=== PATIENT | female | born 1995 | race Caucasian/White ===

== ENCOUNTER 2019-02-09 17:08 | Emergency (ER) | payer OTHER ==
--- NOTE | 2019-02-09 18:44 | ED ---
Skin/Abscess/FB HPI - General Chief complaint: Skin/Abscess/Foreign Body Stated complaint: cyst, female gu, 22 weeks preg Time Seen by Provider: 02/09/19 17:33 Source: patient, RN notes reviewed, old records reviewed Mode of arrival: ambulatory Limitations: no limitations - History of Present Illness Initial comments: Patient is a 24-year-old female . She presents emergency Department with lower back cramping and pain. She states that she's had some UTI like symptoms with frequent urination. Patient reports she has a known history of a Michelle jr's cyst. Its been there for a few months. She denies any new redness or swelling to this area. states that she was initially concerned for her with a lower back cramping starting last night. Patient was 30 seen on labor and delivery floor and sent here. Patient states she's had no testing at the labor and delivery for this time. - Related Data Home Medications Medication Instructions Recorded Confirmed Pnv,Calcium 72/Iron/Folic Acid 1 tab PO DAILY 05/27/15 05/30/15 [ Plus Tablet] Previous Rx's Medication Instructions Recorded Acetaminophen-Codeine 300-30mg 1 - 2 each PO Q4HR PRN #30 tab 06/02/15 [Tylenol w/codeine #3] Ibuprofen [Motrin] 600 mg PO Q6HR PRN #40 tab 06/02/15 Cephalexin [Keflex] 500 mg PO Q8HR #21 cap 02/09/19 Allergies Allergy/AdvReac Type Severity Reaction Status Date / Time No Known Allergies Allergy Verified 02/09/19 17:22 Review of Systems ROS Statement: Those systems with pertinent positive or pertinent negative responses have been documented in the HPI. ROS Other: All systems not noted in ROS Statement are negative. Past Medical History Past Medical History: No Reported History History of Any Multi-Drug Resistant Organisms: None Reported Past Surgical History: No Surgical Hx Reported Past Anesthesia/Blood Transfusion Reactions: No Reported Reaction Past Psychological History: No Psychological Hx Reported Smoking Status: Never smoker Past Alcohol Use History: None Reported Past Drug Use History: None Reported General Exam - General Exam Comments Initial Comments: 24-year-old female. Alert and oriented 3. No distress. Limitations: no limitations General appearance: alert, in no apparent distress Head exam: Present: atraumatic, normocephalic, normal inspection Eye exam: Present: normal appearance, PERRL, EOMI. Absent: scleral icterus, conjunctival injection, periorbital swelling ENT exam: Present: normal exam, mucous membranes moist Neck exam: Present: normal inspection. Absent: tenderness, meningismus, lymphadenopathy Respiratory exam: Present: normal lung sounds bilaterally. Absent: respiratory distress, wheezes, rales, rhonchi, stridor Cardiovascular Exam: Present: regular rate, normal rhythm, normal heart sounds. Absent: systolic murmur, diastolic murmur, rubs, gallop, clicks GI/Abdominal exam: Present: soft, normal bowel sounds. Absent: distended, tenderness, guarding, rebound, rigid External exam: Absent: normal external exam (Evidence of right-sided Bartholin's gland cyst. No surrounding erythema or drainage from the site.), erythema, swelling, lesions, lacerations, ecchymosis Extremities exam: Present: normal inspection, full ROM, normal capillary refill. Absent: tenderness, pedal edema, joint swelling, calf tenderness Back exam: Present: normal inspection Neurological exam: Present: alert, oriented X3, CN II-XII intact Psychiatric exam: Present: normal affect, normal mood Course Vital Signs 02/09/19 17:22 Temperature 98.5 F Pulse Rate 112 H Respiratory 18 Rate Blood Pressure 92/50 O2 Sat by Pulse 96 Oximetry Medical Decision Making - Medical Decision Making Patient's 24-year-old female currently 23 weeks , . Patient presents with lower back cramping and pain. She is concerned for concerns for her . At this time she has a known Bartholin's gland cyst. This appears nonacute. She states been stable for the past few months. No surrounding signs of infection. Urinalysis completed. Patient is stable at t his time for further evaluation by labor and delivery. Urinalysis was completed. UA does show evidence of UTI. Culture will be completed. We'll start the Patient on Keflex. She is afebrile. Patient will be sent upstairs for further monitoring. - Lab Data Lab Results 02/09/19 Range/Units 18:30 Urine Color Yellow Urine Appearance Cloudy H (Clear) Urine pH 7.0 (5.0-8.0) Ur Specific [place] 1.018 (1.001-1.035) Urine Protein 1+ H (Negative) Urine Glucose (UA) Negative (Negative) Urine Ketones 1+ H (Negative) Urine Blood Small H (Negative) Urine Nitrite Negative (Negative) Urine Bilirubin Negative (Negative) Urine Urobilinogen 2.0 (<2.0) mg/dL Ur Leukocyte Esterase Large H (Negative) Urine RBC 5 (0-5) /hpf Urine WBC 148 H (0-5) /hpf Urine WBC Clumps Few H (None) /hpf Ur Squamous Epith Cells 5 H (0-4) /hpf Urine Bacteria Moderate H (None) /hpf Urine Mucus Occasional H (None) /hpf Disposition Clinical Impression: Abdominal cramping affecting , UTI (urinary tract infection) Disposition: HOME SELF-CARE Condition: Good Additional Instructions: Go to labor and delivery for further evaluation. Prescriptions: Cephalexin [Keflex] 500 mg PO Q8HR #21 cap Is patient prescribed a controlled substance at d/c from ED?: No Referrals: Charlie Henson MD [Primary Care Provider] - 1-2 days Time of Disposition: 18:48
[2019-02-09 18:54] LABS: Appearance,Urine Cloudy (Clear); Bacteria,Urine Moderate /hpf; Bilirubin,Urine Negative (Negative); Blood,Urine Small (Negative); Color,Urine Yellow; Glucose,Urine (UA) Negative (Negative); Ketones,Urine 1+ (Negative); Leukocyte Esterase,Urine Large (Negative); Mucus,Urine Occasional /hpf; Nitrite,Urine Negative (Negative); Protein,Urine 1+ (Negative); RBC,Urine 5 /hpf (0-5); Specific Gravity,Urine 1.018 (1.001-1.035); Squamous Epithelial Cell,Urine 5 /hpf (0-4); WBC,Urine 148 /hpf (0-5)
[2019-02-09] MEDS ORDERED: CEPHALEXIN 500MG STARTER PACK 4 CAP BTL PO STA (19:00)
[2019-02-09 19:13] VITALS: BP 98/58; PULSE 109; RESP 20; TEMP 98.6
== END 2019-02-09 19:10 | disposition home or self-care (01) ==
LOC: EC 17:08
DX: O23.42 Unspecified infection of urinary tract in pregnancy, second trimester (principal); O99.89 Other specified diseases and conditions complicating pregnancy, childbirth and the puerperium; M54.5 Low back pain; Z3A.23 23 weeks gestation of pregnancy
CPT/HCPCS: 81001; 99283

== ENCOUNTER 2019-02-09 19:19 | Outpatient (CLI) | payer OTHER ==
[2019-02-09 20:13] VITALS: BP 104/59; PULSE 111; RESP 16; TEMP 99.4
--- NOTE | 2019-02-10 06:21 | P.MSEPDOC ---
Presenting Problems - Arrival Data Date of Arrival on Unit: 02/09/19 Time of Arrival on Unit: 19:19 Mode of Transport: Ambulatory - Complaint OB-Reason for Admission/Chief Complaint: Pain Comment: back pain and cramping, rates pain a 5 Medical History - Information : 2 Para: 1 Term: 1 : 0 Abortions: Spontaneous or Elective: 0 Number of Living Children: 1 - Gestational Age Gestational Age by LEYDI (wks/days): 22 Weeks and 0 Days Review of Systems - Review of Systems Constitutional: No problems Breast: No problems ENT: No problems Cardiovascular: No problems Respiratory: No problems Gastrointestinal: No problems Genitourinary: Increased frequency Musculoskeletal: No problems Neurological: No problems Skin: No problems Vital Signs - Temperature Temperature: 99.4 F Temperature Source: Oral - Pulse Right Brachial Pulse Rate: 111 Pulse Assessment Method: Automatic Cuff - Respirations Respiratory Rate: 16 Oxygen Delivery Method: Room Air O2 Sat by Pulse Oximetry: 98 - Blood Pressure Right Arm Sitting Blood Pressure: 104/59 Blood Pressure Mean: 74 Blood Pressure Source: Automatic Cuff Medical Screen Scoring (Pre) - Cervical Exam Dilation: Exam Deferred Effacement: Exam Deferred Membranes: Intact - Uterine Contractions Frequency: N/A Duration: N/A Intensity: N/A - Maternal Vital Signs Maternal Temperature: N/A Maternal Blood Pressure: N/A Signs of Preeclampsia: N/A Maternal Respirations: N/A - Total Score Total Score (Pre): 0 - Level of Risk Level of Risk: Low (0-5) Physician Notification (Pre) - Physician Notified Physician Notified Date: 02/09/19 Physician Notified Time: 19:40 Physician/Practitioner Notifed:: Dr Dc New Order Received: Yes Disposition - Disposition OB Disposition: Discharge to home, Written follow up instructions reviewed Discharge Date: 02/09/19 Discharge Time: 19:45 I agree with the RN Medical Screening Exam: Yes Risk & Benefit of care provided described in d/c instruction: Yes Diagnosis: URINARY TRACT INFECTION, SITE NOT SPECIFIED
== END 2019-02-09 19:45 | disposition home or self-care (01) ==
LOC: FBPOP 19:19
PROVIDERS: ATTEND Obstetrics & Gynecology
DX: O99.89 Other specified diseases and conditions complicating pregnancy, childbirth and the puerperium (principal); N39.0 Urinary tract infection, site not specified; Z3A.22 22 weeks gestation of pregnancy
CPT/HCPCS: 99213

== ENCOUNTER 2019-02-10 13:31 | Inpatient (IN) | payer OTHER ==
[2019-02-10] MEDS ORDERED: ACETAMINOPHEN TAB 325 MG TAB PO PRN (13:36)
[2019-02-10] MEDS ORDERED: AMPICILLIN 2,000 MG in SODIUM CHLORIDE 0.9% 100 ML IVPB STA (13:42)
[2019-02-10] MEDS ORDERED: LACTATED RINGERS 500 ML IV ONE (13:45)
[2019-02-10] MEDS ORDERED: GENTAMICIN PER PHARMACY MISCELLANE SCH (13:45)
[2019-02-10 13:48] LABS: Basophils % (A) 0 %; Eosinophils # (A) 0.1 k/uL (0-0.7); Eosinophils % (A) 1 %; HCT 30.9 % (34.0-46.0); HGB 10.8 gm/dL (11.4-16.0); Lymphocytes # (A) 0.8 k/uL (1.0-4.8); Lymphocytes % (A) 6 %; MCH 30.7 pg (25.0-35.0); MCV 87.8 fL (80.0-100.0); Mean Platelet Volume 6.8; Monocytes # (A) 0.6 k/uL (0-1.0); Monocytes % (A) 4 %; Neutrophils # (A) 12.9 k/uL (1.3-7.7); Neutrophils % (A) 89 %; Platelet Count 238 k/uL (150-450); RBC 3.52 m/uL (3.80-5.40); RDW 13.4 % (11.5-15.5); WBC 14.5 k/uL (3.8-10.6)
[2019-02-10] MEDS: LACTATED RINGERS 1,000 ML IV SCH ×2 (13:48→21:11)
[2019-02-10 14:00] LABS: ALT 14 U/L (9-52); AST 11 U/L (14-36); Albumin 3.4 g/dL (3.5-5.0); Alkaline Phosphatase 106 U/L (38-126); Anion Gap 12 mmol/L; Blood Urea Nitrogen 4 mg/dL (7-17); Calcium 8.9 mg/dL (8.4-10.2); Carbon Dioxide 15 mmol/L (22-30); Chloride 102 mmol/L (98-107); Glucose 91 mg/dL (74-99); Potassium 3.8 mmol/L (3.5-5.1); Sodium 129 mmol/L (137-145); Total Bilirubin 0.9 mg/dL (0.2-1.3); Total Protein 6.3 g/dL (6.3-8.2)
[2019-02-10] MEDS: ACETAMINOPHEN TAB 325 MG TAB PO PRN (14:02)
[2019-02-10 14:56] LABS: Appearance,Urine Clear (Clear); Bacteria,Urine Many /hpf; Bilirubin,Urine Negative (Negative); Blood,Urine Trace (Negative); Color,Urine Light Yellow; Glucose,Urine (UA) Negative (Negative); Ketones,Urine 4+ (Negative); Leukocyte Esterase,Urine Negative (Negative); Mucus,Urine Rare /hpf; Nitrite,Urine Negative (Negative); PH, Urine 5.5 (5.0-8.0); Protein,Urine Negative (Negative); RBC,Urine 1 /hpf (0-5); Specific Gravity,Urine 1.008 (1.001-1.035); Squamous Epithelial Cell,Urine 4 /hpf (0-4); Urobilinogen,Urine <2.0 mg/dL (<2.0); WBC,Urine 5 /hpf (0-5)
[2019-02-10] MEDS: GENTAMICIN IN NACL ISO-OSM PMX 80 MG in SALINE 1 100ML.BAG IVPB SCH ×2 (15:04→23:52)
--- NOTE | 2019-02-10 17:05 | P.HPOB ---
History of Present Illness H&P Date: 02/10/19 Chief Complaint: Pyelonephritis This patient is a pleasant 24-year-old 2 para 1 female estimated date of confinement 06/29/2019 estimated gestational age 22 weeks who initially developed a urinary tract infection last Sunday and was prescribed Keflex. Patient continued have worsening symptomatology was emergency department yesterday urinalysis again was suggestive of a urinary tract infection however she began developing fevers overnight and some right-sided back pain. care is otherwise complicated just by late to seek care. Her first OB visit was approximately 18 weeks. Patient does have a history of cholestasis with her first . Patient now presents for IV antibiotics secondary to failed outpatient therapy. Review of Systems Genitourinary: Reports Menstruation: Reports amenorrhea Musculoskeletal: Reports low back pain Past Medical History Past Medical History: No Reported History Additional Past Medical History / Comment(s): Patient has a history of severe cholestasis with her first and delivered at 35 weeks. History of Any Multi-Drug Resistant Organisms: None Reported Past Surgical History: No Surgical Hx Reported Past Anesthesia/Blood Transfusion Reactions: No Reported Reaction Past Psychological History: No Psychological Hx Reported Smoking Status: Never smoker Past Alcohol Use History: None Reported Past Drug Use History: None Reported - Past Family History Mother Family Medical History: No Reported History Medications and Allergies Home Medications Medication Instructions Recorded Confirmed Type Pnv,Calcium 72/Iron/Folic Acid 1 tab PO DAILY 05/27/15 02/09/19 History [ Plus Tablet] Cephalexin [Keflex] 500 mg PO Q8HR #21 cap 02/09/19 02/09/19 Rx Allergies Allergy/AdvReac Type Severity Reaction Status Date / Time No Known Allergies Allergy Verified 02/09/19 17:22 Exam Vital Signs Temp Pulse Resp BP Pulse Ox 02/10/19 16:04 97.9 F 122 H 16 95/62 99 02/10/19 13:45 99.9 F H 136 H 16 104/65 96 02/10/19 13:33 99.9 F H 136 H 16 104/65 95 Intake and Output 02/10/19 02/10/19 02/10/19 06:59 14:59 22:59 Other: # Voids 1 Weight 47.627 kg - OBG Physical Exam Abdomen: bowel sounds normal, no diffuse tenderness, no bruit present, no guarding noted, no hepatomegaly, no splenomegaly, no mass Vulva: both: normal Patient has some right-sided low back pain to palpation Results Result Diagrams: 02/10/19 13:37 02/10/19 13:37 Abnormal Lab Results - Last 24 Hours (Table) 02/10/19 02/10/19 02/10/19 Range/Units 13:37 13:37 14:35 WBC 14.5 H (3.8-10.6) k/uL RBC 3.52 L (3.80-5.40) m/uL Hgb 10.8 L (11.4-16.0) gm/dL Hct 30.9 L (34.0-46.0) % Neutrophils # 12.9 H (1.3-7.7) k/uL Lymphocytes # 0.8 L (1.0-4.8) k/uL Sodium 129 L (137-145) mmol/L Carbon Dioxide 15 L (22-30) mmol/L BUN 4 L (7-17) mg/dL Creatinine 0.48 L (0.52-1.04) mg/dL AST 11 L (14-36) U/L Albumin 3.4 L (3.5-5.0) g/dL Urine Ketones 4+ H (Negative) Urine Blood Trace H (Negative) Urine Bacteria Many H (None) /hpf Urine Mucus Rare H (None) /hpf Assessment and Plan Assessment: This is a pleasant 24-year-old 2 para 1 female at 22 weeks gestation with what appears to be pyelonephritis that has failed outpatient oral therapy now presents for IV fluids and IV antibiotics. I did check a CBC and UA C&S. Since the patient was on Keflex underwent a place her on IV ampicillin and gentamicin pending culture results and sensitivity. Treatment plan and clinical picture was discussed with the patient and her family. (1) 22 weeks gestation of Current Visit: Yes Status: Acute Code(s): Z3A.22 - 22 WEEKS GESTATION OF SNOMED Code(s): 31894807 (2) Pyelonephritis affecting in second trimester Current Visit: Yes Status: Acute Code(s): O23.02 - INFECTIONS OF KIDNEY IN , SECOND TRIMESTER SNOMED Code(s): 36647219
[2019-02-10] MEDS: AMPICILLIN 1,000 MG in SODIUM CHLORIDE 0.9% 50 ML IVPB SCH ×2 (18:01→22:02)
[2019-02-11] MEDS ORDERED: SODIUM CHLORIDE 0.9% 500 ML 500 ML IV ONE (01:10)
[2019-02-11] MEDS: SODIUM CHLORIDE 0.9% 1,000 ML IV SCH ×4 (01:21→19:44)
[2019-02-11] MEDS: AMPICILLIN 1,000 MG in SODIUM CHLORIDE 0.9% 50 ML IVPB SCH ×6 (02:02→22:03)
[2019-02-11] MEDS: ACETAMINOPHEN TAB 325 MG TAB PO PRN (04:15)
[2019-02-11] MEDS: SODIUM CHLORIDE 0.9% 250 ML IV SCH (05:09)
[2019-02-11 05:11] LABS: Basophils % (A) 0 %; Eosinophils % (A) 0 %; HCT 27.7 % (34.0-46.0); Lymphocytes # (A) 0.9 k/uL (1.0-4.8); Lymphocytes % (A) 10 %; MCH 29.7 pg (25.0-35.0); MCHC 33.2 g/dL (31.0-37.0); MCV 89.6 fL (80.0-100.0); Mean Platelet Volume 6.2; Monocytes # (A) 0.6 k/uL (0-1.0); Monocytes % (A) 6 %; Neutrophils # (A) 7.2 k/uL (1.3-7.7); Neutrophils % (A) 82 %; Platelet Count 203 k/uL (150-450); RBC 3.09 m/uL (3.80-5.40); RDW 13.1 % (11.5-15.5); WBC 8.7 k/uL (3.8-10.6)
[2019-02-11 05:16] LABS: HGB 9.2 gm/dL (11.4-16.0)
[2019-02-11 05:21] LABS: ALT 19 U/L (9-52); AST 14 U/L (14-36); Albumin 2.5 g/dL (3.5-5.0); Alkaline Phosphatase 90 U/L (38-126); Anion Gap 5 mmol/L; Blood Urea Nitrogen 3 mg/dL (7-17); Calcium 7.7 mg/dL (8.4-10.2); Carbon Dioxide 20 mmol/L (22-30); Chloride 109 mmol/L (98-107); Glucose 88 mg/dL (74-99); Potassium 3.6 mmol/L (3.5-5.1); Sodium 134 mmol/L (137-145); Total Bilirubin 0.6 mg/dL (0.2-1.3)
--- NOTE | 2019-02-11 06:35 | P.PN ---
Progress Note - Text Progress Note Date: 02/11/19 Hospital day #2. Patient is resting without new complaints. Vital signs are stable she is having some mild tachycardia but this felt to be secondary to some dehydration. Repeat CBC is normal light the cast levels were normal. Patient was given several fluid boluses and she is seems to be feeling this felt the same. Patient is has a low-grade temperature. Urine cultures pending at this time. Plan is to continue IV fluids, I/Os, IV antibiotics and await urine culture.
[2019-02-11] MEDS: GENTAMICIN IN NACL ISO-OSM PMX 80 MG in SALINE 1 100ML.BAG IVPB SCH ×2 (08:00→15:55)
[2019-02-11 14:19] VITALS: BMI 18.6
[2019-02-12] MEDS: GENTAMICIN IN NACL ISO-OSM PMX 80 MG in SALINE 1 100ML.BAG IVPB SCH (00:23)
[2019-02-12] MEDS: AMPICILLIN 1,000 MG in SODIUM CHLORIDE 0.9% 50 ML IVPB SCH ×2 (01:41→06:02)
--- NOTE | 2019-02-12 06:38 | P.PN ---
Progress Note - Text Progress Note Date: 02/12/19 Hospital day #2. Patient is feeling much better. Vital signs are stable she's afebrile. Urine culture returned negative for any growth. Patient's pulse has improved and she is urinating copious amounts. Plan today is to discharge home on oral antibiotics. She'll follow up with me in 1 week for office visit and take oral antibiotics for 7 days.
[2019-02-12 06:45] LABS: Anion Gap 3 mmol/L; Blood Urea Nitrogen 2 mg/dL (7-17); Carbon Dioxide 24 mmol/L (22-30); Chloride 110 mmol/L (98-107); Glucose 77 mg/dL (74-99); Potassium 3.4 mmol/L (3.5-5.1); Sodium 137 mmol/L (137-145)
--- NOTE | 2019-02-12 06:45 | P.DS ---
Providers Date of admission: 02/11/19 07:48 Expected date of discharge: 02/12/19 Attending physician: Dwayne Dc Primary care physician: Stated None - Discharge Diagnosis(es) (1) 22 weeks gestation of Current Visit: Yes Status: Acute (2) Pyelonephritis affecting in second trimester Current Visit: Yes Status: Acute Hospital Course: Please see dictated H&P for intimate details of this patient's admission. Brief summary this pleasant 24-year-old patient who is admitted at 22 weeks gestation with pyelonephritis/failed outpatient oral antibiotic therapy. Patient is admitted she is given IV ampicillin and gentamicin and IV hydration. She quickly defervesced is and feels much better. On hospital day #2 she is felt to be stable for discharge home follow up on 1 week. She continue oral antibiotics for 7 days. Patient Condition at Discharge: Good Plan - Discharge Summary New Discharge Prescriptions: New Sulfamethox-Tmp 800-160Mg [Bactrim DS 800-160 mg] 1 tab PO Q12HR 7 Days #14 tab No Action Pnv,Calcium 72/Iron/Folic Acid [ Plus Tablet] 1 tab PO DAILY Cephalexin [Keflex] 500 mg PO Q8HR #21 cap Discharge Medication List Pnv,Calcium 72/Iron/Folic Acid [ Plus Tablet] 1 tab PO DAILY 05/27/15 [History] Cephalexin [Keflex] 500 mg PO Q8HR #21 cap 02/09/19 [Rx] Sulfamethox-Tmp 800-160Mg [Bactrim DS 800-160 mg] 1 tab PO Q12HR 7 Days #14 tab 02/12/19 [Rx] Follow up Appointment(s)/Referral(s): Dwayne Dc MD [STAFF PHYSICIAN] - 1 Week (Please keep your ultrasound appointment tomorrow as scheduled however will reschedule your OB appointment for 1 week.) Patient Instructions/Handouts: Kidney Infection (DC) Activity/Diet/Wound Care/Special Instructions: Please drink plenty of fluids. Keep your ultrasound appointment tomorrow morning in my office. Please see me in 1 week for an OB visit. Call if any fever, chills, excessive back pain or other symptomatology. Discharge Disposition: HOME SELF-CARE
[2019-02-12 08:37] VITALS: BP 99/57; PULSE 113; RESP 16; TEMP 97.8
== END 2019-02-12 09:30 | disposition home or self-care (01) | DRG 833 ==
LOC: UNDOADMIN 13:31 → 4FBP 13:31
PROVIDERS: ADMIT Obstetrics & Gynecology; ATTEND Obstetrics & Gynecology
DX: O23.02 Infections of kidney in pregnancy, second trimester (principal); O99.282 Endocrine, nutritional and metabolic diseases complicating pregnancy, second trimester; E86.0 Dehydration; Z3A.22 22 weeks gestation of pregnancy
CPT/HCPCS: 80048; 80053; 80170; 81001; 83605; 85025; 87086

== ENCOUNTER 2019-03-07 22:47 | Outpatient (CLI) | payer OTHER ==
[2019-03-08 00:34] VITALS: BP 113/59; PULSE 96; RESP 18; TEMP 98.1
[2019-03-08 00:53] LABS: Appearance,Urine Clear (Clear); Bilirubin,Urine Negative (Negative); Blood,Urine Trace (Negative); Color,Urine Yellow; Glucose,Urine (UA) Negative (Negative); Ketones,Urine Negative (Negative); Leukocyte Esterase,Urine Large (Negative); Mucus,Urine Rare /hpf; Nitrite,Urine Negative (Negative); Protein,Urine Negative (Negative); RBC,Urine 1 /hpf (0-5); Specific Gravity,Urine 1.009 (1.001-1.035); Squamous Epithelial Cell,Urine 1 /hpf (0-4); Urobilinogen,Urine <2.0 mg/dL (<2.0); WBC,Urine 4 /hpf (0-5)
--- NOTE | 2019-03-08 06:48 | P.MSEPDOC ---
Presenting Problems - Arrival Data Date of Arrival on Unit: 03/08/19 Time of Arrival on Unit: 22:47 Mode of Transport: Ambulatory - Complaint OB-Reason for Admission/Chief Complaint: Vaginal Bleeding Comment: pt c/o of some spotting and cramping Medical History - Information : 2 Para: 1 Term: 1 : 0 Abortions: Spontaneous or Elective: 0 Number of Living Children: 1 - Gestational Age Gestational Age by LEYDI (wks/days): 23 Weeks and 6 Days - History Complications: Prior Review of Systems - Review of Systems Constitutional: No problems Breast: No problems ENT: No problems Cardiovascular: No problems Respiratory: No problems Gastrointestinal: No problems Genitourinary: No problems Musculoskeletal: No problems Neurological: No problems Skin: No problems Vital Signs - Temperature Temperature: 98.1 F Temperature Source: Temporal Artery Scan - Pulse Right Brachial Pulse Rate: 96 - Respirations Respiratory Rate: 18 Oxygen Delivery Method: Room Air O2 Sat by Pulse Oximetry: 100 - Blood Pressure Right Arm Blood Pressure: 113/59 Blood Pressure Mean: 77 Medical Screen Scoring (Pre) - Cervical Exam Dilation: 0 cm = 0 Effacement: Exam Deferred Membranes: Intact - Uterine Contractions Frequency: N/A Duration: N/A Intensity: N/A - Maternal Vital Signs Maternal Temperature: N/A Maternal Blood Pressure: N/A Signs of Preeclampsia: N/A Maternal Respirations: N/A - Pain Assessment Pain Location and Character: Abdomen Pain Scale Used: Numeric (1 - 10) Pain Intensity: 3 Pain Description: *Acute, Cramping Pain Radiation Location: none Pain Frequency: Intermittent Pain Behavior: Vocalization - Maternal Trauma Maternal Trauma: N/A - Assessment Baseline FHR: 135 Heart Rate - NICHD Category: Category I (Normal) = 0 Position: N/A Station: N/A - Total Score Total Score (Pre): 0 - Level of Risk Level of Risk: Low (0-5) Physician Notification (Pre) - Physician Notified Physician Notified Date: 03/07/19 Physician Notified Time: 23:45 Physician/Practitioner Notifed:: Dr. Monreal Spoke With: Dr. Monreal New Order Received: Yes - Notification Comment Comment: obtain ua Medical Screen Scoring (Post) - Cervical Exam Dilation: Exam Deferred Effacement: Exam Deferred Membranes: Intact - Uterine Contractions Frequency: N/A Duration: N/A - Maternal Vital Signs Maternal Temperature: N/A Maternal Blood Pressure: N/A Signs of Preeclampsia: N/A Maternal Respirations: N/A - Maternal Trauma Maternal Trauma: N/A - Assessment Heart Rate: 130 Heart Rate - NICHD Category: Category I (Normal) = 0 NST: Reactive Station: N/A - Total Score Total Score (Post): 0 - Post Treatment Level of Risk Post Treatment Level of Risk: Low (0-5) Physician Notification (Post) - Physician Notified Physician Notified Date: 03/08/19 Physician Notified Time: 00:55 Physician/Practitioner Notified:: Dr. Monreal Spoke With: Dr. Monreal New Order Received: Yes - Notification Comment Comment: order for culture given, discharge pt home, increase fluids, call office on sunday for results of culture Disposition - Disposition OB Disposition: Triage, Discharge to home, Written follow up instructions reviewed Discharge Date: 03/08/19 Discharge Time: 01:05 I agree with the RN Medical Screening Exam: Yes Risk & Benefit of care provided described in d/c instruction: Yes Diagnosis: FALSE LABOR BEFORE 37 COMPLETED WEEKS OF GEST, SECOND TRI
== END 2019-03-08 01:05 | disposition home or self-care (01) ==
LOC: FBPOP 22:47
PROVIDERS: ATTEND Obstetrics & Gynecology
DX: O47.02 False labor before 37 completed weeks of gestation, second trimester (principal); Z3A.23 23 weeks gestation of pregnancy
CPT/HCPCS: 81001; 87086; G0463; 99213

== ENCOUNTER 2019-05-26 06:00 | Inpatient (IN) | payer OTHER ==
--- NOTE | 2019-05-26 05:45 | P.HPOB ---
History of Present Illness H&P Date: 05/26/19 Chief Complaint: Induction secondary to cholestasis. This patient is a pleasant 24-year-old 2 para 1 female estimated date of confinement 06/14/2019 estimated gestational age 37-2/7 weeks who presents to labor and delivery for induction of labor due to symptomatic cholestasis. Patient's obstetrical history is such that she had severe cholestasis with her last at 35 weeks and also had labor at that time. Patient this has been on progesterone injections secondary to delivery and has had weekly bile acids done. Patient has developed itching over the last several weeks to months and bile acids did elevate it had started to come back down but now is being induced for this reasoning per [facility] recommendations. care is also complicated by recurrent Bartholin's cyst that required Word catheter placement. This did epithelialize after several weeks and the catheter was removed. Patient's been followed with nonstress tests growth ultrasounds. She now presents for delivery. Review of Systems Constitutional: Reports as per HPI Gastrointestinal: Reports heartburn Genitourinary: Reports Menstruation: Reports amenorrhea Past Medical History Past Medical History: No Reported History Additional Past Medical History / Comment(s): Patient has a history of severe cholestasis with her first and delivered at 35 weeks. History of Any Multi-Drug Resistant Organisms: None Reported Past Surgical History: No Surgical Hx Reported Past Anesthesia/Blood Transfusion Reactions: No Reported Reaction Past Psychological History: No Psychological Hx Reported Smoking Status: Never smoker Past Alcohol Use History: None Reported Past Drug Use History: None Reported - Past Family History Mother Family Medical History: No Reported History Medications and Allergies Home Medications Medication Instructions Recorded Confirmed Type Pnv,Calcium 72/Iron/Folic Acid 1 tab PO DAILY 05/27/15 03/07/19 History [ Plus Tablet] S Hydroprogest 250 mg IM WEEKLY 03/07/19 History Allergies Allergy/AdvReac Type Severity Reaction Status Date / Time No Known Allergies Allergy Verified 03/07/19 22:55 Exam - OBG Physical Exam Abdomen: bowel sounds normal, no diffuse tenderness, no bruit present, no guarding noted, no hepatomegaly, no splenomegaly, no mass Vulva: both: normal Vagina: normal moisture, no discharge Cervix: no lesion (Cervix in the office showed the 1 cm dilated 50% effaced.), no discharge Uterus: enlarged (Fundal height was 36 cm) Results blood work shows she is O positive, rubella immune, RPR nonreactive, hepatitis B negative, HIV is nonreactive, Glucola was normal, group B strep was negative, most recent ultrasound showed the baby to be 5 lbs. 7 oz. to 50th percentile. Assessment and Plan Assessment: This is a pleasant 24-year-old 2 para 1 female 37-2/7 weeks gestation with cholestasis of presenting for induction of labor. Plan is induction of labor with Pitocin per protocol and anticipate vaginal delivery. (1) 37 or more weeks gestation of Status: Acute Code(s): CEF9734 - SNOMED Code(s): 43753607 (2) Cholestasis of in third trimester Status: Acute Code(s): O26.613 - LIVER AND BILIARY TRACT DISORD IN , THIRD TRIMESTER SNOMED Code(s): 185645746
[2019-05-26] MEDS ORDERED: OXYTOCIN 10 UNIT/ML 1 ML VIAL IM PRN (06:09)
[2019-05-26] MEDS ORDERED: OXYTOCIN 30 UNITS/500 ML NS 30 UNIT in SALINE 1 500ML.BAG IV SCH (06:09)
[2019-05-26] MEDS ORDERED: CARBOPROST TROMETHAMINE 250 MCG/ML 1 ML AMP IM PRN (06:09)
[2019-05-26] MEDS ORDERED: TERBUTALINE 1 MG/ML VIAL SQ PRN (06:09)
[2019-05-26] MEDS ORDERED: METHYLERGONOVINE 0.2 MG/ML 1 ML AMP IM PRN (06:09)
[2019-05-26] MEDS ORDERED: LIDOCAINE 0.5% (PF) 5 MG/ML (50 ML SDV) SQ PRN (06:09)
[2019-05-26 06:13] VITALS: BMI 22.3
[2019-05-26] MEDS: LACTATED RINGERS 1,000 ML IV SCH ×3 (06:16→13:29)
[2019-05-26 06:28] LABS: Basophils # (A) 0.1 k/uL (0-0.2); Basophils % (A) 1 %; Eosinophils # (A) 0.1 k/uL (0-0.7); Eosinophils % (A) 2 %; HCT 28.6 % (34.0-46.0); HGB 9.1 gm/dL (11.4-16.0); Hypochromasia Moderate; Lymphocytes # (A) 2.2 k/uL (1.0-4.8); Lymphocytes % (A) 33 %; MCH 24.8 pg (25.0-35.0); MCHC 31.7 g/dL (31.0-37.0); MCV 78.2 fL (80.0-100.0); Mean Platelet Volume 7.8; Monocytes # (A) 0.4 k/uL (0-1.0); Monocytes % (A) 6 %; Neutrophils # (A) 3.7 k/uL (1.3-7.7); Neutrophils % (A) 56 %; Platelet Count 286 k/uL (150-450); Poikilocytosis Slight; RBC 3.65 m/uL (3.80-5.40); RDW 15.3 % (11.5-15.5); WBC 6.6 k/uL (3.8-10.6)
[2019-05-26] MEDS ORDERED: BUTORPHANOL 1 MG/ML 1 ML VIAL IV PRN (08:15)
[2019-05-26] MEDS ORDERED: ROPIVACAINE 100 MG, fentaNYL (PF) 200 MCG in SODIUM CHLORIDE 0.9% 76 ML EPIDURAL ONE (13:29)
[2019-05-26] MEDS ORDERED: SIMETHICONE 80 MG CHEWABLE PO PRN (15:38)
[2019-05-26] MEDS ORDERED: diphenhydrAMINE 50 MG/ML 1 ML VIAL IVP PRN (15:38)
[2019-05-26] MEDS ORDERED: HYDROCORTISONE 2.5% RECTAL CREAM 30 GM TUBE RECTAL PRN (15:38)
[2019-05-26] MEDS ORDERED: ZOLPIDEM 5 MG TAB PO PRN (15:38)
[2019-05-26] MEDS ORDERED: WITCH HAZEL 1 EACH MED..PAD TOPICAL PRN (15:38)
[2019-05-26] MEDS ORDERED: LANOLIN CREAM 5 GM TUBE TOPICAL PRN (15:38)
[2019-05-26] MEDS ORDERED: ACETAMINOPHEN TAB 325 MG TAB PO PRN (15:38)
[2019-05-26] MEDS ORDERED: BISACODYL 10 MG SUPP RECTAL PRN (15:38)
[2019-05-26] MEDS ORDERED: OXYTOCIN 20 UNITS/1000 ML NS 1,000 ML IV SCH (15:38)
[2019-05-26] MEDS ORDERED: BENZOCAINE/MENTHOL SPRAY 1 GM/SPRAY AEROSOL TOPICAL PRN (15:38)
[2019-05-26] MEDS ORDERED: diphenhydrAMINE 25 MG CAP PO PRN (15:38)
--- NOTE | 2019-05-26 16:38 | P.PROBDLV ---
Vaginal Delivery Note - . Vaginal Delivery Note: normal vaginal delivery viable female Apgars 9 and 9 delivery time is 1521 hrs. Please see dictated H&P for intimate details of this patient's admission. In brief summary this is a pleasant 24-year-old 2 para 1 female 37-2/7 weeks gestation admitted to labor and delivery for induction secondary to cholestasis of . On admission the patient is 2 cm dilated and has artificial rupture membranes for clear fluid. Labor is induced with Pitocin. She has received Stadol and then an epidural for pain control. Patient subsequently thereafter goes quickly to complete pushes the head to the perineum. Posterior perineum is supported we have controlled delivery of 's head over the intact perineum. Mouth and nares are bulb suctioned. There is a nuchal cord which the patient continues to deliver through. Gentle downward traction we deliver the anterior and posterior shoulder and rest this 's body. Vigorous viable female Apgars 9 and 9 delivery time is 1521 hrs. After delivery of the the infant is late on the mother's abdomen and after the cord is done pulse 80 is doubly clamped and then cut. The placenta is then spontaneously delivered intact. Inspection of perineum shows no lacerations and no repairs required. All counts are correct. There are no complications. and mother are stable in delivery room.
[2019-05-26] MEDS: SENNOSIDES-DOCUSATE SODIUM 1 EACH TAB PO SCH ×2 (16:49→21:07)
[2019-05-27] MEDS: IBUPROFEN 600 MG TAB PO PRN ×3 (03:33→22:56)
--- NOTE | 2019-05-27 06:25 | P.PNOBGVD ---
Subjective - Subjective Patient reports: Reports appetite normal, Reports voiding normally, Reports pain well controlled, Reports ambulating normally : doing well Objective - Latest Vital Signs Latest vital signs: Vital Signs Temp Pulse Resp BP 05/27/19 00:00 98 F 96 16 123/74 05/26/19 20:00 98 F 94 15 113/73 05/26/19 17:30 98.9 F 85 18 113/69 05/26/19 17:00 98.2 F 86 18 114/56 05/26/19 16:30 99.0 F 100 18 131/73 05/26/19 16:15 74 125/68 05/26/19 16:00 98.2 F 82 18 110/65 05/26/19 15:45 98.4 F 82 18 109/65 05/26/19 15:30 98.4 F 90 18 122/67 Intake and Output 05/26/19 05/26/19 05/27/19 14:59 22:59 06:59 Other: # Voids 1 1 1 - Exam Lungs: bilateral: normal Chest: Normal S1, Normal S2 Extremities: Present: normal Abdomen: Present: normal appearance, soft Uterus: Present: normal, firm - Labs Labs: Abnormal Lab Results - Last 24 Hours (Table) 05/26/19 Range/Units 06:15 RBC 3.65 L (3.80-5.40) m/uL Hgb 9.1 L (11.4-16.0) gm/dL Hct 28.6 L (34.0-46.0) % MCV 78.2 L (80.0-100.0) fL MCH 24.8 L (25.0-35.0) pg Assessment and Plan Assessment: day #1. Patient is resting without complaints and wishes to go home. Vital signs are stable she is afebrile. Uterus is firm nontender and she is having normal lochia. My impression is a normal course. Plan is to continue routine care and discharge home later today. (1) 37 or more weeks gestation of Current Visit: No Status: Acute Code(s): MYQ2324 - SNOMED Code(s): 64987186 (2) Cholestasis of in third trimester Current Visit: No Status: Acute Code(s): O26.613 - LIVER AND BILIARY TRACT DISORD IN , THIRD TRIMESTER SNOMED Code(s): 252581712
--- NOTE | 2019-05-27 06:29 | P.DS ---
Providers Date of admission: 05/26/19 06:00 Expected date of discharge: 05/27/19 Attending physician: Dwayne Dc Primary care physician: Stated None - Discharge Diagnosis(es) (1) 37 or more weeks gestation of Current Visit: No Status: Acute (2) Cholestasis of in third trimester Current Visit: No Status: Acute Hospital Course: Please see dictated H&P for intimate details of this patient's admission. Brief summary is a pleasant 24-year-old 2 para 1 female 37-2/7 weeks gestation admitted to labor and delivery for induction of labor secondary to cholestasis. Patient is admitted and subsequently goes on to have a vaginal delivery viable female . Please see dictated delivery note. day #1 patient without complaints wishes to go home. Patient's felt be stable for discharge home follow up with me in 6 weeks. Procedures: Induction of labor and normal vaginal delivery Patient Condition at Discharge: Good Plan - Discharge Summary New Discharge Prescriptions: New Ibuprofen [Motrin] 600 mg PO Q6HR PRN #40 tab PRN Reason: Mild Pain Or Fever >= 100.5 No Action Pnv,Calcium 72/Iron/Folic Acid [ Plus Tablet] 1 tab PO DAILY Discharge Medication List Pnv,Calcium 72/Iron/Folic Acid [ Plus Tablet] 1 tab PO DAILY 05/27/15 [History] Ibuprofen [Motrin] 600 mg PO Q6HR PRN #40 tab 05/27/19 [Rx] Follow up Appointment(s)/Referral(s): Dwayne Dc MD [STAFF PHYSICIAN] - 07/08/19 10:45 am Patient Instructions/Handouts: Vaginal Delivery (DC) Activity/Diet/Wound Care/Special Instructions: No intercourse or anything per vagina for 6 weeks. Please call if any fever, chills, excessive vaginal bleeding, and/or abdominal pain. Discharge Disposition: HOME SELF-CARE
[2019-05-27] MEDS: SENNOSIDES-DOCUSATE SODIUM 1 EACH TAB PO SCH ×2 (08:01→20:36)
--- NOTE | 2019-05-28 06:03 | P.PNOBGVD ---
Subjective - Subjective Patient reports: Reports appetite normal, Reports voiding normally, Reports pain well controlled, Reports ambulating normally : doing well Objective - Latest Vital Signs Latest vital signs: Vital Signs Temp Pulse Resp BP 05/28/19 00:00 98.2 F 72 16 115/88 05/27/19 16:00 98.6 F 86 18 123/75 05/27/19 08:00 97.4 F L 66 16 105/66 Intake and Output 05/27/19 05/27/19 05/28/19 14:59 22:59 06:59 Other: # Voids 1 1 - Exam Lungs: bilateral: normal Chest: Normal S1, Normal S2 Extremities: Present: normal Abdomen: Present: normal appearance, soft Uterus: Present: normal, firm Assessment and Plan Assessment: day #2. Patient decided to stay yesterday because he was feeding well. Vital signs are stable she is afebrile. Uterus is firm nontender she's having normal lochia. My impression this is a normal course. Plan is to continue routine care discharge home later today. (1) 37 or more weeks gestation of Current Visit: No Status: Acute Code(s): [id number] - SNOMED Code(s): 20297248 (2) Cholestasis of in third trimester Current Visit: No Status: Acute Code(s): O26.613 - LIVER AND BILIARY TRACT DISORD IN , THIRD TRIMESTER SNOMED Code(s): 655751365
[2019-05-28] MEDS: IBUPROFEN 600 MG TAB PO PRN (08:43)
[2019-05-28 09:32] VITALS: BP 108/60; PULSE 66; RESP 17; TEMP 98.1
[2019-05-28] MEDS: SENNOSIDES-DOCUSATE SODIUM 1 EACH TAB PO SCH (09:56)
== END 2019-05-28 12:45 | disposition home or self-care (01) | DRG 807 ==
LOC: 4FBP 06:00
PROVIDERS: ADMIT Obstetrics & Gynecology; ATTEND Obstetrics & Gynecology
PROC: 00HU33Z Insertion of Infusion Device into Spinal Canal, Percutaneous Approach (ICD-10-PCS; principal; 2019-05-26)
PROC: 3E033VJ Introduction of Other Hormone into Peripheral Vein, Percutaneous Approach (ICD-10-PCS; principal; 2019-05-26)
PROC: 3E0R3NZ Introduction of Analgesics, Hypnotics, Sedatives into Spinal Canal, Percutaneous Approach (ICD-10-PCS; principal; 2019-05-26)
PROC: 10E0XZZ Delivery of Products of Conception, External Approach (ICD-10-PCS; principal; 2019-05-26)
PROC: 10907ZC Drainage of Amniotic Fluid, Therapeutic from Products of Conception, Via Natural or Artificial Opening (ICD-10-PCS; principal; 2019-05-26)
DX: O26.62 Liver and biliary tract disorders in childbirth (principal); Z37.0 Single live birth; Z3A.37 37 weeks gestation of pregnancy; O69.81X0 Labor and delivery complicated by cord around neck, without compression, not applicable or unspecified
CPT/HCPCS: 85025; 86850; 86900; 86901; 88307

== ENCOUNTER 2020-09-17 21:14 | Emergency (ER) | payer OTHER ==
[2020-09-17 21:43] LABS: Appearance,Urine Cloudy (Clear); Bilirubin,Urine Negative (Negative); Blood,Urine Small (Negative); Color,Urine Yellow; Glucose,Urine (UA) Negative (Negative); Ketones,Urine 4+ (Negative); Leukocyte Esterase,Urine Large (Negative); Mucus,Urine Occasional /hpf; Nitrite,Urine Negative (Negative); Protein,Urine 1+ (Negative); RBC,Urine 3 /hpf (0-5); Specific Gravity,Urine 1.028 (1.001-1.035); Squamous Epithelial Cell,Urine 10 /hpf (0-4); Urobilinogen,Urine <2.0 mg/dL (<2.0); WBC,Urine 66 /hpf (0-5)
[2020-09-17] MEDS ORDERED: ACETAMINOPHEN TAB 500 MG TAB PO STA (21:55)
[2020-09-17] MEDS ORDERED: METOCLOPRAMIDE 5 MG/ML 2 ML VIAL IVP STA (21:55)
[2020-09-17] MEDS ORDERED: cefTRIAXone IN SWFI 1,000 MG/10 ML SYRINGE IVP STA (21:56)
--- NOTE | 2020-09-17 22:00 | ED ---
General Adult HPI - General Chief complaint: Extremity Injury, Lower Stated complaint: Fever/back pain/ Time Seen by Provider: 09/17/20 21:47 Source: patient Mode of arrival: ambulatory Limitations: no limitations - History of Present Illness Initial comments: Dictation was produced using [employer] dictation software. please excuse any grammatical, word or spelling errors. This patient was cared for during a federal and state declared state of emergency secondary to Covid 19 Chief Complaint: 25-year-old male presents with complaints of back pain History of Present Illness: To 25-year-old female she states she's . S he does not know how far lying she is. She does not have a regular menses to estimate gestational age. She just found out she was recently. She is not taking vitamins are has followed up with DEVELOPMENT REPRESENTATIVE yet. Patient states this is her second . Eyes of some mild nausea. She has not been as nonbloody emesis. No diarrhea. She does complain of some mild right lower quadrant abdominal pain. She does complain of sore throat. She has been exposed to somebody with coronavirus. She does have some mild back pain. Patient has history of pyelonephritis. She states that her symptoms today feel like a urinary tract infection that is affecting her kidneys. 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 The ROS documented in this emergency department record has been reviewed and confirmed by me. Those systems with pertinent positive or negative responses have been documented in the HPI. All other systems are other negative and/or noncontributory. PHYSICAL EXAM: General Impression: Alert and oriented x3, not in acute distress HEENT: Normocephalic atraumatic, extra-ocular movements intact, pupils equal and reactive to light bilaterally, mucous membranes moist, nonerythematous posterior oropharynx Cardiovascular: Heart regular rate and rhythm Chest: Able to complete full sentences, no retractions, no tachypnea Abdomen: abdomen soft, mild tenderness to the right lower quadrant with palpation, no rebound tenderness, negative Pascual sign non-distended, no organomegaly Musculoskeletal: Pulses present and equal in all extremities, no peripheral edema, positive CVA tenderness bilaterally Motor: no focal deficits noted Neurological: CN II-XII grossly intact, no focal motor or sensory deficits noted Skin: Intact with no visualized rashes Psych: Normal affect and mood ED course: 25-year-old female presents with a chief complaint of back pain. Phy sical examination she does have some abdominal pain. Vital signs upon arrival shows temperature 11.2, heart rate of 139, worse vital signs within acceptable limits. At this point patient has multiple localizing symptoms. ultrasound was obtained given that patient have some right lower quadrant pain. Ultrasound shows gestational age of 13 weeks and 1 day without any [place] getting processes. heart rate is 153. Laboratory evaluation obtained showing no leukocytosis. Leukocytopenia 0.4. Metabolic panel shows mild anion gap acidosis. Urinalysis likely secondary to ongoing retraction. Urinalysis is positive for urinary tract infection with 66 white blood cells. There are 4+ ketones. Negative leukocytosis there is no clinical suspicion of bacterial infection. Makes appendicitis less likely patient context of urinary tract infection. Patient refused pelvic exam. Coronavirus rapid test is positive. Influenza test is negative. Group A rapid strep rapid is negative. Patient counseled on coronavirus and she should quarantine. However given that she is and she also has a superimposed urinary tract infection she needs to follow-up with DEVELOPMENT REPRESENTATIVE. Physician options were discussed with patient. She would prefer to be discharged. She is tolerating oral intake. She given prescription for Keflex, Reglan and vitamins. Case was discussed with Dr. Naranjo was operations lead for Dr. Dc, patient's intended joint sealer who is agreeable to plan. Dr. Naranjo recommends that patient call office as soon as possible to make an appointment for follow-up. EKG interpretation: Ventricular rate 119, sinus tachycardia,. 126, QRS 62, QTc 442. No KS prolongation, no QTC prolongation, no ST or T-wave changes noted. Overall, this EKG is unremarkable - Related Data Previous Rx's Medication Instructions Recorded Cephalexin [Keflex] 500 mg PO Q6HR 7 Days #28 cap 09/17/20 Metoclopramide [Reglan] 5 mg PO TID PRN #24 tab 09/17/20 114/Iron A-G/Folate 1 1 each PO DAILY #30 tablet 09/17/20 [Prenate Elite Tablet] Allergies Allergy/AdvReac Type Severity Reaction Status Date / Time No Known Allergies Allergy Verified 09/17/20 22:51 Review of Systems ROS Statement: Those systems with pertinent positive or pertinent negative responses have been documented in the HPI. ROS Other: All systems not noted in ROS Statement are negative. Past Medical History Past Medical History: No Reported History Additional Past Medical History / Comment(s): Patient has a history of severe cholestasis with her first and delivered at 35 weeks. History of Any Multi-Drug Resistant Organisms: None Reported Past Surgical History: No Surgical Hx Reported Past Anesthesia/Blood Transfusion Reactions: No Reported Reaction Past Psychological History: No Psychological Hx Reported Smoking Status: Never smoker Past Alcohol Use History: None Reported Past Drug Use History: None Reported - Past Family History Mother Family Medical History: No Reported History General Exam Limitations: no limitations Course Vital Signs 09/17/20 21:16 Temperature 101.2 F H Pulse Rate 139 H Respiratory 15 Rate Blood Pressure 116/87 O2 Sat by Pulse 97 Oximetry Medical Decision Making - Lab Data Result diagrams: 09/17/20 22:06 09/17/20 22:06 Lab Results 09/17/20 09/17/20 09/17/20 Range/Units 21:23 21:23 22:06 WBC 8.0 (3.8-10.6) k/uL RBC 4.40 (3.80-5.40) m/uL Hgb 13.1 (11.4-16.0) gm/dL Hct 39.7 (34.0-46.0) % MCV 90.4 (80.0-100.0) fL MCH 29.9 (25.0-35.0) pg MCHC 33.1 (31.0-37.0) g/dL RDW 12.9 (11.5-15.5) % Plt Count 227 (150-450) k/uL MPV 6.8 Neutrophils % 89 % Lymphocytes % 5 % Monocytes % 5 % Eosinophils % 1 % Basophils % 0 % Neutrophils # 7.1 (1.3-7.7) k/uL Lymphocytes # 0.4 L (1.0-4.8) k/uL Monocytes # 0.4 (0-1.0) k/uL Eosinophils # 0.1 (0-0.7) k/uL Basophils # 0.0 (0-0.2) k/uL PT (9.0-12.0) sec INR (<1.2) APTT (22.0-30.0) sec Sodium (137-145) mmol/L Potassium (3.5-5.1) mmol/L Chloride (98-107) mmol/L Carbon Dioxide (22-30) mmol/L Anion Gap mmol/L BUN (7-17) mg/dL Creatinine (0.52-1.04) mg/dL Est GFR (CKD-EPI)AfAm (>60 ml/min/1.73 sqM) Est GFR (CKD-EPI)NonAf (>60 ml/min/1.73 sqM) Glucose (74-99) mg/dL Plasma Lactic Acid Faheem (0.7-2.0) mmol/L Calcium (8.4-10.2) mg/dL Total Bilirubin (0.2-1.3) mg/dL AST (14-36) U/L ALT (4-34) U/L Alkaline Phosphatase (38-126) U/L Total Protein (6.3-8.2) g/dL Albumin (3.5-5.0) g/dL Urine Color Yellow Urine Appearance Cloudy H (Clear) Urine pH 6.0 (5.0-8.0) Ur Specific Sunset 1.028 (1.001-1.035) Urine Protein 1+ H (Negative) Urine Glucose (UA) Negative (Negative) Urine Ketones 4+ H (Negative) Urine Blood Small H (Negative) Urine Nitrite Negative (Negative) Urine Bilirubin Negative (Negative) Urine Urobilinogen <2.0 (<2.0) mg/dL Ur Leukocyte Esterase Large H (Negative) Urine RBC 3 (0-5) /hpf Urine WBC 66 H (0-5) /hpf Ur Squamous Epith Cells 10 H (0-4) /hpf Urine Mucus Occasional H (None) /hpf Urine HCG, Qual Detected (Not Detectd) Coronavirus (PCR) (Not Detectd) Influenza Type A RNA (Not Detectd) Influenza Type B (PCR) (Not Detectd) Group A Strep Rapid (Negative) 09/17/20 09/17/20 09/17/20 Range/Units 22:06 22:06 22:06 WBC (3.8-10.6) k/uL RBC (3.80-5.40) m/uL Hgb (11.4-16.0) gm/dL Hct (34.0-46.0) % MCV (80.0-100.0) fL MCH (25.0-35.0) pg MCHC (31.0-37.0) g/dL RDW (11.5-15.5) % Plt Count (150-450) k/uL MPV Neutrophils % % Lymphocytes % % Monocytes % % Eosinophils % % Basophils % % Neutrophils # (1.3-7.7) k/uL Lymphocytes # (1.0-4.8) k/uL Monocytes # (0-1.0) k/uL Eosinophils # (0-0.7) k/uL Basophils # (0-0.2) k/uL PT 9.5 (9.0-12.0) sec INR 0.9 (<1.2) APTT 22.3 (22.0-30.0) sec Sodium 133 L (137-145) mmol/L Potassium 3.8 (3.5-5.1) mmol/L Chloride 104 (98-107) mmol/L Carbon Dioxide 16 L (22-30) mmol/L Anion Gap 13 mmol/L BUN 5 L (7-17) mg/dL Creatinine 0.54 (0.52-1.04) mg/dL Est GFR (CKD-EPI)AfAm >90 (>60 ml/min/1.73 sqM) Est GFR (CKD-EPI)NonAf >90 (>60 ml/min/1.73 sqM) Glucose 91 (74-99) mg/dL Plasma Lactic Acid Faheem 1.1 (0.7-2.0) mmol/L Calcium 9.3 (8.4-10.2) mg/dL Total Bilirubin 0.6 (0.2-1.3) mg/dL AST 19 (14-36) U/L ALT 10 (4-34) U/L Alkaline Phosphatase 85 (38-126) U/L Total Protein 7.5 (6.3-8.2) g/dL Albumin 4.2 (3.5-5.0) g/dL Urine Color Urine Appearance (Clear) Urine pH (5.0-8.0) Ur Specific Sunset (1.001-1.035) Urine Protein (Negative) Urine Glucose (UA) (Negative) Urine Ketones (Negative) Urine Blood (Negative) Urine Nitrite (Negative) Urine Bilirubin (Negative) Urine Urobilinogen (<2.0) mg/dL Ur Leukocyte Esterase (Negative) Urine RBC (0-5) /hpf Urine WBC (0-5) /hpf Ur Squamous Epith Cells (0-4) /hpf Urine Mucus (None) /hpf Urine HCG, Qual (Not Detectd) Coronavirus (PCR) (Not Detectd) Influenza Type A RNA (Not Detectd) Influenza Type B (PCR) (Not Detectd) Group A Strep Rapid (Negative) 09/17/20 09/17/20 Range/Units 22:06 22:06 WBC (3.8-10.6) k/uL RBC (3.80-5.40) m/uL Hgb (11.4-16.0) gm/dL Hct (34.0-46.0) % MCV (80.0-100.0) fL MCH (25.0-35.0) pg MCHC (31.0-37.0) g/dL RDW (11.5-15.5) % Plt Count (150-450) k/uL MPV Neutrophils % % Lymphocytes % % Monocytes % % Eosinophils % % Basophils % % Neutrophils # (1.3-7.7) k/uL Lymphocytes # (1.0-4.8) k/uL Monocytes # (0-1.0) k/uL Eosinophils # (0-0.7) k/uL Basophils # (0-0.2) k/uL PT (9.0-12.0) sec INR (<1.2) APTT (22.0-30.0) sec Sodium (137-145) mmol/L Potassium (3.5-5.1) mmol/L Chloride (98-107) mmol/L Carbon Dioxide (22-30) mmol/L Anion Gap mmol/L BUN (7-17) mg/dL Creatinine (0.52-1.04) mg/dL Est GFR (CKD-EPI)AfAm (>60 ml/min/1.73 sqM) Est GFR (CKD-EPI)NonAf (>60 ml/min/1.73 sqM) Glucose (74-99) mg/dL Plasma Lactic Acid Faheem (0.7-2.0) mmol/L Calcium (8.4-10.2) mg/dL Total Bilirubin (0.2-1.3) mg/dL AST (14-36) U/L ALT (4-34) U/L Alkaline Phosphatase (38-126) U/L Total Protein (6.3-8.2) g/dL Albumin (3.5-5.0) g/dL Urine Color Urine Appearance (Clear) Urine pH (5.0-8.0) Ur Specific Sunset (1.001-1.035) Urine Protein (Negative) Urine Glucose (UA) (Negative) Urine Ketones (Negative) Urine Blood (Negative) Urine Nitrite (Negative) Urine Bilirubin (Negative) Urine Urobilinogen (<2.0) mg/dL Ur Leukocyte Esterase (Negative) Urine RBC (0-5) /hpf Urine WBC (0-5) /hpf Ur Squamous Epith Cells (0-4) /hpf Urine Mucus (None) /hpf Urine HCG, Qual (Not Detectd) Coronavirus (PCR) Detected A (Not Detectd) Influenza Type A RNA Not Detected (Not Detectd) Influenza Type B (PCR) Not Detected (Not Detectd) Group A Strep Rapid Negative (Negative) Disposition Clinical Impression: UTI (urinary tract infection), COVID-19, Dehydration Disposition: HOME SELF-CARE Instructions (If sedation given, give patient instructions): Viral Pneumonia (ED), Dehydration (ED), Hyperemesis Gravidarum (ED), Urinary Tract Infection in (ED) Additional Instructions: Today you were evaluated for symptoms consistent with upper respiratory infection. There is concern that perhaps your symptomatology may represent Covid 19. Your are stable for discharge, however it is instructed to to seek immediate medical attention especially if you develop worsening symptoms especially respiratory distress. In the meantime please remain in quarantine for 14 days. For any other questions please contact [facility] for here in emergency department or [facility] at [phone] Please follow up with Dr. Dc as soon as possible. Please seek medical attention immediately if he develop any worsening symptoms including worsening fever, worsening pain, vaginal discharge or vaginal bleeding or worsening nausea vomiting. Prescriptions: Cephalexin [Keflex] 500 mg PO Q6HR 7 Days #28 cap 114/Iron A-G/Folate 1 [Prenate Elite Tablet] 1 each PO DAILY #30 tablet Metoclopramide [Reglan] 5 mg PO TID PRN #24 tab PRN Reason: nausea/vomiting Is patient prescribed a controlled substance at d/c from ED?: No Referrals: Dwayne Dc MD [STAFF PHYSICIAN] - 1-2 days Time of Disposition: 23:06
[2020-09-17] MEDS ORDERED: SODIUM CHLORIDE 0.9% 1,000 ML IV STA (22:04)
[2020-09-17 22:39] LABS: Basophils % (A) 0 %; Eosinophils # (A) 0.1 k/uL (0-0.7); Eosinophils % (A) 1 %; HCT 39.7 % (34.0-46.0); HGB 13.1 gm/dL (11.4-16.0); Lymphocytes # (A) 0.4 k/uL (1.0-4.8); Lymphocytes % (A) 5 %; MCH 29.9 pg (25.0-35.0); MCHC 33.1 g/dL (31.0-37.0); MCV 90.4 fL (80.0-100.0); Mean Platelet Volume 6.8; Monocytes # (A) 0.4 k/uL (0-1.0); Monocytes % (A) 5 %; Neutrophils # (A) 7.1 k/uL (1.3-7.7); Neutrophils % (A) 89 %; Platelet Count 227 k/uL (150-450); RDW 12.9 % (11.5-15.5)
--- NOTE | 2020-09-17 22:48 | US ---
EXAMINATION TYPE: Transabdominal DATE OF EXAM: 09/17/2020 10:39 PM COMPARISON: NONE CLINICAL HISTORY: RLQ pain. Unknown dates EXAM PERFORMED: Transabdominal (TA) EXAM MEASUREMENTS: GESTATIONAL AGE / DATING Physician Established: Not yet established Dates by LMP: LMP unknown Dates by Current Scan for: (13 weeks/1 days) EDC: 03/24/2021 MATERNAL ANATOMY Uterus: 10.9 x 9.2 x 8.6 cm Right Ovary: 2.6 x 2.5 x 2.6 cm Left Ovary: 3.0 x 2.1 x 1.7 cm Post CDS / Adnexa: wnl Presence of free fluid: No Presence of corpus luteal cyst: No Presence of subchorionic bleed: No GESTATION / SURVEY CRL: 6.8 cm (13 weeks/1 days) Heart Rate: 153 bpm Rhythm: Normal IUP: Viable IUP Date of LMP: Unknown Beta HcG (if available): Not available at this time Viable IUP with an LEYDI of 03/24/2021 by this exam IMPRESSION: The ultrasound gestational age is 13 weeks and 1 day. No complicating process seen.
[2020-09-17 22:49] LABS: ALT 10 U/L (4-34); AST 19 U/L (14-36); African American GFR (CKD) >90 (>60 ml/min/1.73 sqM); Albumin 4.2 g/dL (3.5-5.0); Alkaline Phosphatase 85 U/L (38-126); Anion Gap 13 mmol/L; Blood Urea Nitrogen 5 mg/dL (7-17); Calcium 9.3 mg/dL (8.4-10.2); Carbon Dioxide 16 mmol/L (22-30); Chloride 104 mmol/L (98-107); Glucose 91 mg/dL (74-99); Non-African American GFR(CKD) >90 (>60 ml/min/1.73 sqM); Potassium 3.8 mmol/L (3.5-5.1); Sodium 133 mmol/L (137-145); Total Bilirubin 0.6 mg/dL (0.2-1.3); Total Protein 7.5 g/dL (6.3-8.2)
[2020-09-17 22:56] LABS: INR 0.9 (<1.2); Partial Thromboplastin Time 22.3 sec (22.0-30.0); Prothrombin Time 9.5 sec (9.0-12.0)
[2020-09-17 23:17] VITALS: BP 104/65; PULSE 110; RESP 18; TEMP 99.3
[2020-09-18 00:02] LABS: HCG,Quantitative Serum 83756.7 mIU/mL
== END 2020-09-17 23:23 | disposition home or self-care (01) ==
LOC: EC 21:14
DX: M54.9 Dorsalgia, unspecified (principal); R50.9 Fever, unspecified; R10.31 Right lower quadrant pain; O99.511 Diseases of the respiratory system complicating pregnancy, first trimester; U07.1 COVID-19; O23.41 Unspecified infection of urinary tract in pregnancy, first trimester; O99.281 Endocrine, nutritional and metabolic diseases complicating pregnancy, first trimester; E86.0 Dehydration; O99.111 Other diseases of the blood and blood-forming organs and certain disorders involving the immune mechanism complicating pregnancy, first trimester; D72.819 Decreased white blood cell count, unspecified; O99.891 Other specified diseases and conditions complicating pregnancy; E87.2 Acidosis; Z3A.13 13 weeks gestation of pregnancy
CPT/HCPCS: 36415; 93005; 80053; 83605; 85025; 85610; 85730; 81001; 81025; 84702; 87040; 87086; 87081; 87430; 87502; 87635; 76801; 99284; 96374; 96375; 96361; J2765; J0696

== ENCOUNTER 2021-03-18 05:55 | Inpatient (IN) | payer OTHER ==
--- NOTE | 2021-03-17 07:37 | P.HPOB ---
History of Present Illness H&P Date: 03/17/21 Chief Complaint: Requested induction of labor This patient is a pleasant 26-year-old 3 para 2 female estimated date of confinement 04/01/2021 estimated gestational age 39 and one sevenths weeks who presents to labor and delivery for requested induction of labor. Patient's history is such that she had cholestasis with both of her previous pregnancies. Patient was followed closely with serial blood work and nonstress tests this but has no evidence of cholestasis this . Patient has a favorable cervix and is uncomfortable requesting induction of labor. Patient does also have a history of delivery has been on progesterone throughout the until 36 weeks. Patient also had COVID at 13 weeks . Review of Systems Genitourinary: Reports Menstruation: Reports amenorrhea Past Medical History Past Medical History: No Reported History Additional Past Medical History / Comment(s): Patient has a history of severe cholestasis with her first and delivered at 35 weeks. Second patient also had cholestasis is induced at 37 weeks. History of Any Multi-Drug Resistant Organisms: None Reported Past Surgical History: No Surgical Hx Reported Past Anesthesia/Blood Transfusion Reactions: No Reported Reaction Past Psychological History: No Psychological Hx Reported Smoking Status: Never smoker Past Alcohol Use History: None Reported Past Drug Use History: None Reported - Past Family History Mother Family Medical History: No Reported History Medications and Allergies Home Medications Medication Instructions Recorded Confirmed Type Cephalexin [Keflex] 500 mg PO Q6HR 7 Days #28 cap 09/17/20 Rx Metoclopramide [Reglan] 5 mg PO TID PRN #24 tab 09/17/20 Rx 114/Iron A-G/Folate 1 1 each PO DAILY #30 tablet 09/17/20 Rx [Prenate Elite Tablet] Allergies Allergy/AdvReac Type Severity Reaction Status Date / Time No Known Allergies Allergy Verified 09/17/20 22:51 Exam - OBG Physical Exam Abdomen: bowel sounds normal, no diffuse tenderness, no bruit present, no guarding noted, no hepatomegaly, no splenomegaly, no mass Vulva: both: normal Vagina: normal moisture, no discharge Cervix: no lesion (Cervix in the office is 3 cm dilated 50% effaced.), no discharge Uterus: enlarged (Fundal height is 37 cm) Results blood work shows she is O positive, rubella nonimmune, RPR nonreactive, HIV is nonreactive, hepatitis B is negative, group B strep was negative, Glucola was abnormal with a normal three-hour GTT, most recent ultrasound showed estimated weight of 5 lbs. 11 oz. Assessment and Plan Assessment: This is a pleasant 26-year-old 3 para 2 female 39 and one sevenths weeks gestation who presents to labor and delivery for requested induction of labor secondary to maternal discomfort. Plan is induction of labor and anticipate vaginal delivery. (1) 39 weeks gestation of Status: Acute Code(s): Z3A.39 - 39 WEEKS GESTATION OF SNOMED Code(s): 48086932 (2) Elective induction of labor planned Status: Acute Code(s): KNF6463 - SNOMED Code(s): 742214696
[2021-03-18] MEDS ORDERED: METHYLERGONOVINE 0.2 MG/ML 1 ML AMP IM PRN (06:05)
[2021-03-18] MEDS ORDERED: OXYTOCIN 30 UNITS/500 ML NS 30 UNIT in SALINE 1 500ML.BAG IV SCH ×2 (06:05→11:56)
[2021-03-18] MEDS ORDERED: LIDOCAINE 0.5% (PF) 5 MG/ML (50 ML SDV) SQ PRN (06:05)
[2021-03-18] MEDS ORDERED: CARBOPROST TROMETHAMINE 250 MCG/ML 1 ML AMP IM PRN (06:05)
[2021-03-18] MEDS ORDERED: OXYTOCIN 10 UNIT/ML 1 ML VIAL IM PRN (06:05)
[2021-03-18] MEDS ORDERED: TERBUTALINE 1 MG/ML VIAL SQ PRN (06:05)
[2021-03-18] MEDS: LACTATED RINGERS 1,000 ML IV SCH ×2 (06:32→09:20)
[2021-03-18 06:39] LABS: Anisocytosis Slight; Basophils # (A) 0.1 k/uL (0-0.2); Basophils % (A) 1 %; Eosinophils # (A) 0.1 k/uL (0-0.7); Eosinophils % (A) 1 %; HCT 27.8 % (34.0-46.0); HGB 9.1 gm/dL (11.4-16.0); Hypochromasia Moderate; Lymphocytes # (A) 1.9 k/uL (1.0-4.8); Lymphocytes % (A) 26 %; MCH 23.3 pg (25.0-35.0); MCHC 32.8 g/dL (31.0-37.0); MCV 71.1 fL (80.0-100.0); Mean Platelet Volume 7.5; Microcytosis Moderate; Monocytes # (A) 0.6 k/uL (0-1.0); Monocytes % (A) 8 %; Neutrophils # (A) 4.8 k/uL (1.3-7.7); Neutrophils % (A) 64 %; Platelet Count 213 k/uL (150-450); Poikilocytosis Moderate; RDW 16.3 % (11.5-15.5); WBC 7.6 k/uL (3.8-10.6)
[2021-03-18] MEDS ORDERED: SODIUM CHLORIDE 0.9% 100 ML BAG ONE (09:22)
[2021-03-18] MEDS ORDERED: fentaNYL (PF) 50 MCG/ML 5 ML AMP ONE (09:22)
[2021-03-18] MEDS ORDERED: ROPIVACAINE 5MG/ML 20ML VIAL ONE (09:22)
[2021-03-18] MEDS ORDERED: SIMETHICONE 80 MG CHEWABLE PO PRN (11:56)
[2021-03-18] MEDS ORDERED: ACETAMINOPHEN TAB 325 MG TAB PO PRN (11:56)
[2021-03-18] MEDS ORDERED: diphenhydrAMINE 25 MG CAP PO PRN (11:56)
[2021-03-18] MEDS ORDERED: HYDROCORTISONE 2.5% RECTAL CREAM 30 GM TUBE RECTAL PRN (11:56)
[2021-03-18] MEDS ORDERED: diphenhydrAMINE 50 MG/ML 1 ML VIAL IVP PRN (11:56)
[2021-03-18] MEDS ORDERED: SENNOSIDES-DOCUSATE SODIUM 1 EACH TAB PO PRN (11:56)
[2021-03-18] MEDS ORDERED: LANOLIN CREAM 5 GM TUBE TOPICAL PRN (11:56)
[2021-03-18] MEDS ORDERED: BENZOCAINE/MENTHOL SPRAY 1 GM/SPRAY AEROSOL TOPICAL PRN (11:56)
[2021-03-18] MEDS ORDERED: ZOLPIDEM 5 MG TAB PO PRN (11:56)
[2021-03-18] MEDS ORDERED: bisacodyL 10 MG SUPP RECTAL PRN (11:56)
--- NOTE | 2021-03-18 12:51 | P.PROBDLV ---
Vaginal Delivery Note - . Vaginal Delivery Note: Normal vaginal delivery viable male infant Apgars 9 and 9 delivery time was 1141 hrs. Please see dictated H&P for intimate details of this patient's admission. Brief summary this is a pleasant 26-year-old 3 para 2 female 39 and one sevenths weeks gestation admitted to labor and delivery for requested induction of labor. Patient is admitted she 3 cm dilated has artificial rupture membranes for clear fluid. Labor is induced with Pitocin per protocol. Labor progresses quickly and she does get an epidural for pain control. Patient gets to complete pushes one time pushes the head over the intact perineum. is straight occiput anterior presentation. Mouth and nares are bulb suctioned. There is no evidence of nuchal cord. With gentle downward traction we then have deliver the anterior and posterior shoulder and rest this infant's body. This is a vigorous viable male infant Apgars are 9 and 9 delivery time was 1141 hrs. After delivery of the the umbilical cord is allowed quit pulsating, it is then doubly clamped and cut appears to be trivascular. Placenta spontaneously delivered intact. There is a superficial left periurethral lacerations otherwise no other lacerations. No repair is done. and mother are stabl e in delivery room. Estimated blood loss is 1 50 mL. There are no complications. All counts correct 3.
[2021-03-18] MEDS ORDERED: MEASLES-MUMPS-RUBELLA VACC/PF 12,500 UNIT/0.5 ML VIAL SQ ONE (16:46)
[2021-03-18] MEDS: IBUPROFEN 600 MG TAB PO PRN (18:33)
[2021-03-19] MEDS: IBUPROFEN 600 MG TAB PO PRN ×2 (05:05→12:25)
[2021-03-19 10:24] VITALS: BP 116/70; PULSE 71; RESP 16; TEMP 97.8
--- NOTE | 2021-03-19 11:34 | P.DS ---
Providers Date of admission: 03/18/21 05:55 Expected date of discharge: 03/19/21 Attending physician: Dwayne Dc [facility] Course: This is a 26-year-old female 3 para 2 at 39 and one sevenths weeks who presented for induction of labor. She was underwent oxytocin induction of labor and delivered vaginally a viable male infant with scores of 9 at 1 minute and 9 at 5 minutes and infant weight is 7 lbs. 11 oz. Her course was essentially uncomplicated. Lochia is decreasing. Pain is well-controlled. She is breast-feeding. Vital signs are stable. Abdomen is soft with fundus firm and nontender. Extremities show negative Homans. Impression is status post vaginal delivery day #1. Plan is to discharge home today. Routine instructions are given. She are he has a prescription for a breast pump. She will be given a prescription for ibuprofen. She is advised to follow up with Dr. Dc in the office in 6 weeks. She is advised to call the office if she has any further questions or concerns prior to her appointment time. Procedures: Oxytocin induction of labor Spontaneous vaginal delivery of a viable male on 03/18/2021 Patient Condition at Discharge: Stable Plan - Discharge Summary New Discharge Prescriptions: New Ibuprofen [Motrin] 600 mg PO Q6H PRN #30 tab PRN Reason: Pain No Action 114/Iron A-G/Folate 1 [Prenate Elite Tablet] 1 each PO DAILY #30 tablet Discharge Medication List 114/Iron A-G/Folate 1 [Prenate Elite Tablet] 1 each PO DAILY #30 tablet 09/17/20 [Rx] Ibuprofen [Motrin] 600 mg PO Q6H PRN #30 tab 03/18/21 [Rx] Follow up Appointment(s)/Referral(s): Dwayne Dc MD [STAFF PHYSICIAN] - 04/28/21 11:15 am Patient Instructions/Handouts: Vaginal Delivery (DC) Activity/Diet/Wound Care/Special Instructions: No intercourse or anything per vagina for 6 weeks. Please call if any fever, chills, excessive vaginal bleeding, and/or abdominal pain. Discharge Disposition: HOME SELF-CARE
== END 2021-03-19 14:52 | disposition home or self-care (01) | DRG 807 ==
LOC: 4FBP 05:55
PROVIDERS: ADMIT Obstetrics & Gynecology; ATTEND Obstetrics & Gynecology
PROC: 10E0XZZ Delivery of Products of Conception, External Approach (ICD-10-PCS; principal; 2021-03-18)
DX: O71.82 Other specified trauma to perineum and vulva (principal); Z37.0 Single live birth; Z3A.39 39 weeks gestation of pregnancy
CPT/HCPCS: 85025; 86850; 86900; 86901; 90707

== ENCOUNTER 2021-05-23 14:49 | Emergency (ER) | payer OTHER ==
[2021-05-23 14:59] VITALS: BP 119/79; PULSE 72; RESP 16; TEMP 98
--- NOTE | 2021-05-23 15:21 | ED ---
General Adult HPI - General Chief complaint: Nausea/Vomiting/Diarrhea Stated complaint: Possible Reaction to vaccine Source: patient, family, RN notes reviewed Mode of arrival: ambulatory Limitations: no limitations - History of Present Illness Initial comments: 26-year-old well-appearing white female, alert and oriented 4, presents to the emergency room with complaints of some neck pain that developed after getting her second Covid vaccine on Sunday. Patient states after her vaccine she did break out in hives which have resolved. She states that she did have a low-grade fever which also has resolved however today she states that she has left-sided neck pain and she can feel some swelling and was concerned. Patient denies any fevers, cough, nausea vomiting or diarrhea. She states that she had a baby, pounds 11 ounces , 9 weeks ago and it was uncomplicated. -: days(s) (3) Location: neck Radiation: non-radiation Severity scale (1-10): 0 Associated Symptoms: chest pain, fever/chills, nausea/vomiting, rash Treatments Prior to Arrival: none - Related Data Previous Rx's Medication Instructions Recorded 114/Iron A-G/Folate 1 1 each PO DAILY #30 tablet 09/17/20 [Prenate Elite Tablet] Ibuprofen [Motrin] 600 mg PO Q6H PRN #30 tab 03/18/21 Allergies Allergy/AdvReac Type Severity Reaction Status Date / Time No Known Allergies Allergy Verified 05/23/21 14:59 Review of Systems ROS Statement: Those systems with pertinent positive or pertinent negative responses have been documented in the HPI. ROS Other: All systems not noted in ROS Statement are negative. Past Medical History Past Medical History: No Reported History Additional Past Medical History / Comment(s): Patient has a history of severe cholestasis with her first and delivered at 35 weeks. Second patient also had cholestasis is induced at 37 weeks. History of Any Multi-Drug Resistant Organisms: None Reported Past Surgical History: No Surgical Hx Reported Past Anesthesia/Blood Transfusion Reactions: No Reported Reaction Past Psychological History: No Psychological Hx Reported Smoking Status: Never smoker Past Alcohol Use History: None Reported Past Drug Use History: None Reported - Past Family History Mother Family Medical History: No Reported History General Exam Limitations: no limitations General appearance: alert, in no apparent distress Head exam: Present: atraumatic, normocephalic, normal inspection Eye exam: Present: normal appearance, PERRL, EOMI. Absent: scleral icterus, conjunctival injection, periorbital swelling Pupils: Present: normal accommodation ENT exam: Present: normal exam, normal oropharynx, mucous membranes moist Neck exam: Present: normal inspection, tenderness, full ROM, lymphadenopathy (Cervical left side). Absent: meningismus Respiratory exam: Present: normal lung sounds bilaterally. Absent: respiratory distress, wheezes, rales, rhonchi, stridor, chest wall tenderness, accessory muscle use, decreased breath sounds, prolonged expiratory Cardiovascular Exam: Present: regular rate, normal rhythm, normal heart sounds. Absent: systolic murmur, diastolic murmur, rubs, gallop, clicks, JVD GI/Abdominal exam: Present: soft, normal bowel sounds. Absent: distended, tenderness, guarding, rebound, rigid Extremities exam: Present: normal inspection, full ROM, normal capillary refill. Absent: tenderness, pedal edema, joint swelling, calf tenderness Back exam: Present: normal inspection, full ROM. Absent: tenderness, CVA tenderness (R), CVA tenderness (L), muscle spasm, paraspinal tenderness, vertebral tenderness Neurological exam: Present: alert, oriented X3, CN II-XII intact Psychiatric exam: Present: normal affect, normal mood Skin exam: Present: warm, dry, intact, normal color. Absent: rash, cyanosis, diaphoretic, erythema, petechiae, pallor, mottled Course Vital Signs 05/23/21 14:55 Temperature 98 F Pulse Rate 72 Respiratory 16 Rate Blood Pressure 119/79 O2 Sat by Pulse 100 Oximetry Medical Decision Making - Medical Decision Making Patient is well-appearing and afebrile with vital signs are stable. She has mild left lateral cervical lymphadenopathy with no tonsillar exudates. This is likely side effects from her vaccination on Sunday and symptoms are resolving. She no longer has hives. She denies vomiting or diarrhea at this time. She'll be directed to follow up with the primary care doctor and return to the emergency room with worsening symptoms. Case discussed with Dr. De Los Santos. Disposition Clinical Impression: Post-immunization reaction Disposition: HOME SELF-CARE Condition: Good Instructions (If sedation given, give patient instructions): Acute Nausea and Vomiting (ED) Additional Instructions: Take Tylenol and or Motrin as needed for pain or fevers. Increase her fluid intake. Follow-up with the primary care doctor in 1 week. Return to the emergency room with worsening symptoms, shortness of breath or fevers. Is patient prescribed a controlled substance at d/c from ED?: No Referrals: Nonstaff,Physician [Primary Care Provider] - 1-2 days Time of Disposition: 15:58
[2021-05-23] MEDS: ONDANSETRON ODT 4 MG TAB PO STA ×2 (15:51→15:52)
== END 2021-05-23 16:18 | disposition home or self-care (01) ==
LOC: EC 14:49
DX: M54.2 Cervicalgia (principal); R59.0 Localized enlarged lymph nodes; R07.9 Chest pain, unspecified; R11.2 Nausea with vomiting, unspecified; R50.9 Fever, unspecified; T50.B95A Adverse effect of other viral vaccines, initial encounter
CPT/HCPCS: 99284

== ENCOUNTER 2021-05-25 23:56 | Emergency (ER) | payer OTHER ==
[2021-05-26] MEDS ORDERED: FAMOTIDINE 20 MG TAB PO STA (00:19)
[2021-05-26] MEDS ORDERED: methylPREDNISolone SOD SUCCI 125 MG/2 ML VIAL IM ONE (00:19)
[2021-05-26] MEDS ORDERED: diphenhydrAMINE 50 MG CAP PO STA (00:19)
--- NOTE | 2021-05-26 00:46 | XR ---
EXAMINATION TYPE: XR chest 2V DATE OF EXAM: 05/26/2021 COMPARISON: NONE HISTORY: Chest pain TECHNIQUE: 2 views FINDINGS: Heart and mediastinum are normal. Lungs are clear. Diaphragm is normal. Bony thorax is inta ct. There are chest leads. IMPRESSION: Normal chest.
--- NOTE | 2021-05-26 00:47 | ED ---
General Adult HPI - General Chief complaint: Chest Pain Stated complaint: Chest Pain Time Seen by Provider: 05/26/21 00:14 Source: patient Mode of arrival: ambulatory Limitations: no limitations - History of Present Illness Initial comments: 26 year-old female patient presents to the emergency department for evaluation of "throat swelling" and chest pressure. Patient states that she received her 2nd Moderna COVID-19 vaccination on Sunday. States that she developed hives the evening after getting the vaccine. States she also had low grade fever. States she was having some throat swelling so was seen in the emergency department two days ago. States she has been having intermittent lip swelling as well. States she has been taking benadryl which does seem to help her symptoms somewhat. States she feels like she is somewhat short of breath. Denies any wheezing. States it feels like there is a lump in her throat and a pressure over her upper chest. Denies any current hives. Patient denies any recent cough, abdominal pain, nausea, vomiting, diarrhea, constipation, back pain, numbness, tingling, dizziness, weakness, hematuria, dysuria, urinary urgency, urinary frequency, headache, visual changes, or any other complaints. - Related Data Previous Rx's Medication Instructions Recorded 114/Iron A-G/Folate 1 1 each PO DAILY #30 tablet 09/17/20 [Prenate Elite Tablet] Ibuprofen [Motrin] 600 mg PO Q6H PRN #30 tab 03/18/21 Famotidine [Pepcid] 20 mg PO DAILY #3 tablet 05/26/21 predniSONE 50 mg PO DAILY #3 tab 05/26/21 Allergies Allergy/AdvReac Type Severity Reaction Status Date / Time No Known Allergies Allergy Verified 05/26/21 00:08 Review of Systems ROS Statement: Those systems with pertinent positive or pertinent negative responses have been documented in the HPI. ROS Other: All systems not noted in ROS Statement are negative. Past Medical History Past Medical History: No Reported History Additional Past Medical History / Comment(s): Patient has a history of severe cholestasis with her first and delivered at 35 weeks. Second patient also had cholestasis is induced at 37 weeks. History of Any Multi-Drug Resistant Organisms: None Reported Past Surgical History: No Surgical Hx Reported Past Anesthesia/Blood Transfusion Reactions: No Reported Reaction Past Psychological History: No Psychological Hx Reported Smoking Status: Never smoker Past Alcohol Use History: None Reported Past Drug Use History: None Reported - Past Family History Mother Family Medical History: No Reported History General Exam Limitations: no limitations General appearance: alert, in no apparent distress, other (This is a well- developed, well-nourished adult female patient in no acute distress. Vital signs upon presentation temperature 98.3F, pulse 89, respirations 22, blood pressure 117/72, pulse ox 98% on room air.) Eye exam: Present: normal appearance, PERRL, EOMI. Absent: scleral icterus, conjunctival injection, periorbital swelling ENT exam: Present: normal exam, normal oropharynx, mucous membranes moist Respiratory exam: Present: normal lung sounds bilaterally. Absent: respiratory distress, wheezes, rales, rhonchi, stridor Cardiovascular Exam: Present: regular rate, normal rhythm, normal heart sounds. Absent: systolic murmur, diastolic murmur, rubs, gallop, clicks GI/Abdominal exam: Present: soft, normal bowel sounds. Absent: distended, tenderness, guarding, rebound, rigid Neurological exam: Present: alert, oriented X3, CN II-XII intact Psychiatric exam: Present: normal affect, normal mood Skin exam: Present: warm, dry, intact, normal color. Absent: rash Course Vital Signs 05/26/21 00:03 Temperature 98.3 F Pulse Rate 89 Respiratory 22 Rate Blood Pressure 117/72 O2 Sat by Pulse 98 Oximetry EKG Findings - EKG Comments: EKG Findings:: EKG obtained at 00 19 shows normal sinus rhythm with sinus arrhythmia. Ventricular rate is 94, IA interval 130, QRS duration 68, QT 358, QTC 447. No evidence of ST elevation or depression. Medical Decision Making - Medical Decision Making 26 year-old female patient presents for evaluation of throat tightness/swelling and chest pressure. Physical examination is unremarkable. Lungs are clear to auscultation. Vital signs within normal range. EKG was unremarkable. Chest x- ray negative. She was given IM Solu-Medrol, oral Pepcid and Benadryl. Symptoms are consistent with ALLERGIC reaction to the COVID-19 vaccine. She'll be discharged follow-up the primary care physician for recheck in 1-2 days. Given prescriptions for prednisone and Pepcid. Return parameters were discussed in detail. She verbalizes understanding and agrees with this plan. My attending is Dr. Coleman. - Radiology Data Radiology results: report reviewed, image reviewed 2 views of the chest are obtained. Report is reviewed in its entirety. Impression by Dr. Iverson shows normal chest. Disposition Clinical Impression: Allergic reaction to COVID-19 vaccine Disposition: HOME SELF-CARE Condition: Good Instructions (If sedation given, give patient instructions): General Allergic Reaction (ED) Additional Instructions: It is not recommended that you receive any further COVID-19 vaccine unless cleared by your primary care physician. Take medications as directed. Return to the emergency department for any new, worsening, or concerning symptoms. Prescriptions: Famotidine [Pepcid] 20 mg PO DAILY #3 tablet predniSONE 50 mg PO DAILY #3 tab Is patient prescribed a controlled substance at d/c from ED?: No Referrals: Charlie Henson MD [Primary Care Provider] - 1-2 days Time of Disposition: 01:12
[2021-05-26 01:31] VITALS: BP 120/67; PULSE 82; RESP 16; TEMP 97.9
== END 2021-05-26 01:30 | disposition home or self-care (01) ==
LOC: EC 23:56
DX: R07.89 Other chest pain (principal); R22.0 Localized swelling, mass and lump, head; T50.B95A Adverse effect of other viral vaccines, initial encounter; Z79.1 Long term (current) use of non-steroidal anti-inflammatories (NSAID); Z79.52 Long term (current) use of systemic steroids; Z79.899 Other long term (current) drug therapy
CPT/HCPCS: 93005; 71046; 99285; 96372; J2930

== ENCOUNTER → 2021-08-09 | Outpatient (CLI) | payer OTHER ==
--- NOTE | 2021-08-09 15:59 | US ---
EXAMINATION TYPE: US thyroid st tissue head/neck DATE OF EXAM: 08/09/2021 COMPARISON: NONE CLINICAL HISTORY: R59.0 Adenopathy. Palpable lumps lateral left neck x couple months Left neck: multiple probable lymph nodes seen with measuring approximately 8 x 4, 1.0 x 0.3 cm, and 1 .0 x 0.5 cm. IMPRESSION: Palpable abnormalities appear to correspond to small lymph nodes compatible with shotty lymphadenopathy. Consider a short-term follow-up in 1-2 months to resolution
== END | disposition home or self-care (01) ==
LOC: RADUSWWP 15:30
PROVIDERS: ATTEND Internal Medicine Hematology & Oncology
DX: R59.0 Localized enlarged lymph nodes (principal)
CPT/HCPCS: 76536

== ENCOUNTER → 2021-08-20 | Outpatient (CLI) | payer OTHER ==
--- NOTE | 2021-08-20 10:32 | CT ---
EXAMINATION TYPE: CT soft tissue neck w con DATE OF EXAM: 08/20/2021 COMPARISON: None HISTORY: Lymphadenopathy CT DLP: 297 mGycm CONTRAST: CT scan of the neck is performed with IV Contrast, patient injected with 100 ml mL of Isovue 300. Contrast enhanced CT of the neck was performed from the skull base through the lung apices. At the site of clinical concern lateral left neck there are 2 subcentimeter lymph nodes noted measuri ng up to 6 mm. Additional subcentimeter lymph nodes are seen more caudally. No adenopathy greater jahaira n 1 cm appreciated. Multiple subcentimeter lymph nodes within the internal jugular chains bilaterally . AIRWAY: The supraglottic, glottic, and subglottic portions of the airway appear patent and free of mass. SALIVARY GLANDS: The submandibular and parotid glands are free of mass or inflammatory process. THYROID GLAND: No nodules or masses seen. LUNG APICES: No nodule or mass is seen. OTHER: Vascular structures are patent. No significant degenerative change of the cervical spine. N o abscess seen. IMPRESSION: Subcentimeter lymph nodes as outlined above.
== END | disposition home or self-care (01) ==
LOC: RADCTMAIN 09:13
PROVIDERS: ATTEND Internal Medicine Hematology & Oncology
DX: R59.0 Localized enlarged lymph nodes (principal)
CPT/HCPCS: 70491; Q9967